=== PATIENT | male | born 1975 | race Caucasian/White ===

== ENCOUNTER 2016-04-13 14:11 | Day surgery (SDC) | payer MEDICARE, OTHER ==
--- NOTE | ~2016-04-13 | OP ---
Record Of Operation [facility] [address] [place]. [address] NAME: TYRONE ANDRES : 77 STATUS : REG [facility] PAT#: [id number] AGE: 41 ADM/REG DATE : 04/13/16 MR#: [id number] REPORT SERV DATE: 04/13/16 DICTATED BY: CEASAR BUNCH DATE: 04/13/16 REPORT STATUS : Draft TRANSCRIBED BY: MODL DATE: 04/13/16 DATE OF PROCEDURE: PREOPERATIVE DIAGNOSIS: Painful aneurysm left radial artery. POSTOPERATIVE DIAGNOSIS: Painful aneurysm left radial artery. PROCEDURE: Exploration of left radial artery with patch repair. SURGEON: Ceasar Bunch M.D. FELLOW: Chato. ANESTHESIA: Local with sedation. COMPLICATIONS: None. BLOOD LOSS: 50. 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 This has been ligated, however, he has a painful aneurysm. It was felt he would benefit from exploration and repair. This was discussed in detail. The patient expressed understanding and desired to proceed. DESCRIPTION OF PROCEDURE: The patient was taken to the operating room and placed in supine position. He was given IV sedation without complication. The left arm was prepped and draped in a sterile fashion. A sterile tourniquet was placed in his proximal forearm. The patient was given 5000 units of heparin intravenously. After more than 3 minutes, the cuff was inflated to 250 mmHg. A 1% lidocaine was infiltrated in the skin and subcutaneous tissues around the aneurysm of his radial artery. A longitudinal incision was created. Sharp dissection was performed to free the aneurysm and radial artery circumferentially from the surrounding tissues. Once completed, the fistula proximal in the incision was ligated with silk tie and divided. The radial artery proximal and distal to the aneurysm were controlled with vascular clamps. The aneurysm was then opened and resected from the artery wall. The arteriotomy was continued proximally ensuring there was no stenosis. The arterial opening was then closed taking a portion of the aneurysm wall as a patch and sewn in circumferentially with 6-0 Prolene suture. Once the vascular clamps were placed. The tourniquet had been let down. Once the closure was completed, the clamps were removed. Bleeding points on the artery were controlled with 6-0 Prolene suture. There was significant oozing throughout the wound. Bovie cautery was used as was the fibrillar. The patient was given 30 mg of protamine. Due to continued oozing, Surgiflo was placed in the wound with additional fibrillar. This achieved hemostasis. The incision was then closed with running 3-0 Vicryl suture along with running 4-0 Monocryl suture. Dermabond dressing applied. There was a good palpable radial artery pulse beyond the repair. The patient tolerated the procedure well and was taken to the recovery room in stable condition. Record Of Operation [place] [id number] [facility]. [address] NAME: TYRONE ANDRES : 77 STATUS : REG [facility] PAT#: [id number] AGE: 41 ADM/REG DATE : 04/13/16 MR#: [id number] REPORT SERV DATE: 04/13/16 DICTATED BY: CEASAR BUNCH DATE: 04/13/16 REPORT STATUS : Draft TRANSCRIBED BY: ALICJA DATE: 04/13/16 PEYMAN/ALICJA Ceasar Bunch M.D. / [id number] CC: Ceasar Bunch M.D.
[~2016-04-13 14:11] MED LIST: *UNABLE1; AMLODIPINE PO; APRES50 PO; BUM5 PO; CELLCEPT5 PO; COREG25 PO; DIFLUCAN PO; DSS PO; FLUCON2 PO; HUMAPUMP SC; LEVOTHYROXIN50 MCG PO; LISINOPRIL40 MG PO; LOP50 PO; METOPROLOL PO; NORV10 PO; P5 PO; PCET PO; PEP20 PO; PRIN20 PO; PROCRIT10 IV; PROGRAF1 PO; REQUIP25 PO; REQUIP5 PO; SYN.05 PO; VANCOMYCIN; VANCOMYCIN IV IV; VITD PO; ZOCOR20 PO
[2016-04-13 15:44] LABS: BASOPHILS 0.4 %; BASOPHILS ABSOLUTE 0.02 10/3/uL (0.0-0.16); EOSINOPHILS 0.9 %; EOSINOPHILS ABSOLUTE 0.04 10/3/uL (0.0-0.53); HEMATOCRIT 32.2 % (40.0-51.0); HEMOGLOBIN 10.7 g/dL (13.6-17.8); IMMATURE GRANULOCYTES 0.2 %; IMMATURE GRANULOCYTES ABSOLUTE 0.01 10/3/uL (0.0-0.11); LYMPHOCYTES 29.5 %; LYMPHOCYTES ABSOLUTE 1.34 10/3/uL (0.67-4.30); MANUAL DIFF NO %; MEAN CORPUS HGB CONC 33.2 g/dL (32.0-36.0); MEAN CORPUSCULAR HEMOGLOB 28.5 pg (26.0-34.0); MEAN CORPUSCULAR VOLUME 85.9 fL (80-100); MEAN PLATELET VOLUME 8.9 fL (9.2-13.0); MONOCYTES 9.5 %; MONOCYTES ABSOLUTE 0.43 10/3/uL (0.21-1.20); NEUTROPHILS 59.5 %; PLATELET COUNT 171 10/3/uL (150-400); RBC DISTRIBUTION WIDTH 12.5 % (12.0-16.0); RED CELL COUNT 3.75 10/6/uL (4.7-6.1); WHITE BLOOD CELLS 4.5 10/3/uL (4.5-10.5)
[2016-04-13 15:55] LABS: BUN (BLOOD UREA NITROGEN) 23 MG/DL (6-23); CALCIUM, SERUM 7.5 MG/DL (8.5-10.4); CHLORIDE, SERUM 92 MMOL/L (96-112); CO2 (CARBON DIOXIDE) 32 MMOL/L (24-34); CREATININE 7.08 MG/DL (0.70-1.30); GFR AFRICAN AMERICAN 10 ML/MIN (>=60); GFR NON AFRICAN AMERICAN 9 ML/MIN (>=60); GLUCOSE, SERUM 92 MG/DL (60-99); POTASSIUM, SERUM 4.4 MMOL/L (3.5-5.3); SODIUM, SERUM 133 MMOL/L (135-148)
== END 2016-04-13 20:14 | disposition home or self-care (01) ==
LOC: SDC 14:11
PROVIDERS: Surgery
PROC: 03JY0ZZ Inspection of Upper Artery, Open Approach (ICD-10-PCS; principal; 2016-04-13 15:45)
DX: I72.1 Aneurysm of artery of upper extremity (principal); E11.22 Type 2 diabetes mellitus with diabetic chronic kidney disease; I12.9 Hypertensive chronic kidney disease with stage 1 through stage 4 chronic kidney disease, or unspecified chronic kidney disease; N18.9 Chronic kidney disease, unspecified; E11.319 Type 2 diabetes mellitus with unspecified diabetic retinopathy without macular edema; E03.9 Hypothyroidism, unspecified; D64.9 Anemia, unspecified; Z94.0 Kidney transplant status; Z94.83 Pancreas transplant status; Z98.890 Other specified postprocedural states
CPT/HCPCS: 80048; 82962; 85025; A9270-GY; J0690; J1170; J2250; J2405; J2720; J3010

== ENCOUNTER 2016-06-04 20:28 | Emergency (ER) | payer MEDICARE, OTHER | END 2016-06-04 20:32 | disposition home or self-care (01) | LOC: ER 20:28 | DX: H60.92 Unspecified otitis externa, left ear (principal); I10 Essential (primary) hypertension; E10.9 Type 1 diabetes mellitus without complications; E78.5 Hyperlipidemia, unspecified; Z88.5 Allergy status to narcotic agent; Z79.899 Other long term (current) drug therapy; Z79.52 Long term (current) use of systemic steroids | CPT/HCPCS: 99282 ==

== ENCOUNTER 2016-06-11 04:40 | Emergency (ER) | payer MEDICARE, OTHER ==
[2016-06-11 04:36] LABS: BASOPHILS 0.3 %; BASOPHILS ABSOLUTE 0.03 10/3/uL (0.0-0.16); EOSINOPHILS 0.5 %; EOSINOPHILS ABSOLUTE 0.06 10/3/uL (0.0-0.53); HEMATOCRIT 32.9 % (40.0-51.0); HEMOGLOBIN 10.6 g/dL (13.6-17.8); IMMATURE GRANULOCYTES 0.2 %; IMMATURE GRANULOCYTES ABSOLUTE 0.02 10/3/uL (0.0-0.11); LYMPHOCYTES 13.9 %; LYMPHOCYTES ABSOLUTE 1.56 10/3/uL (0.67-4.30); MEAN CORPUS HGB CONC 32.2 g/dL (32.0-36.0); MEAN PLATELET VOLUME 8.9 fL (9.2-13.0); MONOCYTES 6.7 %; MONOCYTES ABSOLUTE 0.75 10/3/uL (0.21-1.20); NEUTROPHILS 78.4 %; RBC DISTRIBUTION WIDTH 14.8 % (12.0-16.0); RED CELL COUNT 3.66 10/6/uL (4.7-6.1)
[2016-06-11 04:39] LABS: ER CBC TAT 0 Hrs 10 Mins; MANUAL DIFF NO %; MEAN CORPUSCULAR VOLUME 89.9 fL (80-100); PLATELET COUNT 230 10/3/uL (150-400); WHITE BLOOD CELLS 11.2 10/3/uL (4.5-10.5)
[2016-06-11 04:49] LABS: BUN (BLOOD UREA NITROGEN) 25 MG/DL (6-23); CHLORIDE, SERUM 93 MMOL/L (96-112); CO2 (CARBON DIOXIDE) 29 MMOL/L (24-34); GLUCOSE, SERUM 93 MG/DL (60-99); POTASSIUM, SERUM 4.3 MMOL/L (3.5-5.3); SODIUM, SERUM 130 MMOL/L (135-148)
[2016-06-11 04:50] LABS: CALCIUM, SERUM 8.8 MG/DL (8.5-10.4); CREATININE 8.15 MG/DL (0.70-1.30); GFR AFRICAN AMERICAN 9 ML/MIN (>=60); GFR NON AFRICAN AMERICAN 7 ML/MIN (>=60)
== END 2016-06-11 05:38 | disposition home or self-care (01) ==
LOC: ER 04:40
PROVIDERS: Physician Assistant
DX: B34.9 Viral infection, unspecified (principal); E11.9 Type 2 diabetes mellitus without complications; Z94.0 Kidney transplant status; Z94.83 Pancreas transplant status; Z88.5 Allergy status to narcotic agent; Z79.52 Long term (current) use of systemic steroids; Z79.899 Other long term (current) drug therapy; Z99.2 Dependence on renal dialysis
CPT/HCPCS: 71010; 80048; 85025; 87040; 87070; 87880; 96372; 99284